=== PATIENT | male | born 1960 | race Caucasian/White ===

== ENCOUNTER 2021-09-19 01:11 | Inpatient (IN) | payer MEDICAID ==
[~2021-09-19] VITALS: Ht 170.2 cm; Wt 62.4 kg
[2021-09-19] MEDS ORDERED: VANCOMYCIN 1GM/250ML 250 ML IV ONE ×2 (04:30→10:00)
[2021-09-19 05:05] LABS: Basophils # (auto) 0.1 10 ^3/uL (0-0.2); Basophils % (auto) 1.8 % (0.0-2.0); Eosinophils # (auto) 0 10 ^3/uL (0-0.8); Eosinophils % (auto) 0.8 % (0.0-7.0); Hemoglobin 13.7 g/dL (13.5-17.5); Lymphocytes % (auto) 16.7 % (10.0-50.0); Mean Corpuscular Hemoglobin 30.3 pg (28.0-32.0); Mean Corpuscular Hgb Conc. 34.2 g/dL (32.0-36.0); Mean Corpuscular Volume 88.4 fL (80.0-100.0); Monocytes # (auto) 0.4 10 ^3/uL (0-1.3); Monocytes % (auto) 5.9 % (0.0-12.0); Neutrophils # (auto) 4.7 10 ^3/uL (1.6-8.6); Neutrophils % (auto) 74.8 % (37.0-80.0); Red Blood Cells 4.52 10^6/uL (4.5-5.90); Red Cell Distribution Width 14.4 % (11.8-14.3); White Blood Cell 6.2 10^3/uL (4.4-10.8)
[2021-09-19 05:38] LABS: BUN/Creatinine Ratio 16.4; Bilirubin, Total 0.7 mg/dL (0.2-1.0); CRP High Sensitivity 1.82 mg/dL (< 0.3); Calcium 8.3 mg/dL (8.5-10.1); Total Protein 7.6 g/dL (6.4-8.2)
[2021-09-19] MEDS ORDERED: ONDANSETRON HCL 4 MG/2 ML VIAL IV PRN (09:45)
[2021-09-19] MEDS ORDERED: VANCOMYCIN PER PHARMACY 0 MG IV SCH (09:45)
[2021-09-19] MEDS ORDERED: DOCUSATE SOD 100 MG CAP PO PRN (09:45)
[2021-09-19] MEDS ORDERED: HYDROcodone-ACET 5/325MG TAB PO PRN (09:45)
[2021-09-19] MEDS ORDERED: ACETAMINOPHEN 325 MG TAB PO PRN (09:45)
[2021-09-19] MEDS: ENOXAPARIN SOD 40 MG/0.4 ML SYRINGE SC SCH (10:00)
[2021-09-19] MEDS ORDERED: NITROGLYCERIN 0.4 MG SL TAB SL PRN (10:45)
[2021-09-19] MEDS ORDERED: MORPHINE SULFATE INJ 2 MG/ml SYRG IV PRN ×2 (10:45→17:00)
[2021-09-19] MEDS: SODIUM CHLOR 0.9% PF (SALINE LOCK) 10ML VIAL/SYR IV SCH ×2 (14:00→22:22)
[2021-09-19 22:00] VITALS: BP 124/72
[2021-09-20 00:12] VITALS: BP 124/60
[2021-09-20 05:00] VITALS: BP 114/71
[2021-09-20] MEDS ORDERED: VANCOMYCIN 1GM/250ML 250 ML IV ONE (05:15)
[2021-09-20] MEDS: SODIUM CHLOR 0.9% PF (SALINE LOCK) 10ML VIAL/SYR IV SCH ×3 (06:19→22:38)
[2021-09-20] MEDS: VANCOMYCIN 1GM/250ML 250 ML IV SCH ×2 (06:19→18:00)
[2021-09-20 08:00] VITALS: BP 128/73
[2021-09-20 08:02] LABS: Basophils # (auto) 0 10 ^3/uL (0-0.2); Basophils % (auto) 0.5 % (0.0-2.0); Eosinophils # (auto) 0.1 10 ^3/uL (0-0.8); Eosinophils % (auto) 1.7 % (0.0-7.0); Hematocrit 39.8 % (41.0-53.0); Hemoglobin 13.5 g/dL (13.5-17.5); Lymphocytes # (auto) 1.2 10 ^3/uL (0.4-5.4); Lymphocytes % (auto) 20.4 % (10.0-50.0); Mean Corpuscular Hemoglobin 29.9 pg (28.0-32.0); Mean Corpuscular Hgb Conc. 33.9 g/dL (32.0-36.0); Mean Corpuscular Volume 88.3 fL (80.0-100.0); Monocytes # (auto) 0.5 10 ^3/uL (0-1.3); Monocytes % (auto) 8.2 % (0.0-12.0); Neutrophils # (auto) 4.1 10 ^3/uL (1.6-8.6); Neutrophils % (auto) 69.2 % (37.0-80.0); Nucleated Red Blood Cells % 0.1 %; Red Blood Cells 4.51 10^6/uL (4.5-5.90)
[2021-09-20 08:43] LABS: Albumin 2.6 g/dL (3.4-5.0); Calcium 7.8 mg/dL (8.5-10.1); Potassium 3.6 mmol/L (3.5-5.1)
[2021-09-20 08:47] LABS: BUN/Creatinine Ratio 15.6; Total Protein 6.8 g/dL (6.4-8.2)
[2021-09-20] MEDS: ENOXAPARIN SOD 40 MG/0.4 ML SYRINGE SC SCH (10:00)
[2021-09-20 12:00] VITALS: BP 119/77
[2021-09-20 16:00] VITALS: BP 113/68
[2021-09-20 21:40] VITALS: BP 113/76
[2021-09-21 04:57] VITALS: BP 124/81
[2021-09-21] MEDS ORDERED: ACETAMINOPHEN 325 MG TAB PO PRN (06:00)
[2021-09-21] MEDS ORDERED: HYDROcodone-ACET 5/325MG TAB PO PRN (06:00)
[2021-09-21] MEDS ORDERED: ONDANSETRON HCL 4 MG/2 ML VIAL IV PRN (06:00)
[2021-09-21] MEDS ORDERED: VANCOMYCIN 1GM/250ML 250 ML IV SCH ×2 (06:00→11:00)
[2021-09-21] MEDS ORDERED: VANCOMYCIN 1GM/250ML 250 ML IV ONE (06:05)
[2021-09-21] MEDS ORDERED: VANCOMYCIN PER PHARMACY 0 MG IV SCH (06:15)
[2021-09-21] MEDS ORDERED: MORPHINE SULFATE INJ 2 MG/ml SYRG IV PRN ×2 (06:15)
[2021-09-21] MEDS ORDERED: NITROGLYCERIN 0.4 MG SL TAB SL PRN (06:15)
[2021-09-21] MEDS: SODIUM CHLOR 0.9% PF (SALINE LOCK) 10ML VIAL/SYR IV SCH ×2 (06:26→12:44)
[2021-09-21 07:40] VITALS: BP 124/84
[2021-09-21 09:00] VITALS: BP 124/84
[2021-09-21] MEDS ORDERED: ENOXAPARIN SOD 40 MG/0.4 ML SYRINGE SC SCH (10:00)
[2021-09-21] MEDS ORDERED: DOCUSATE SOD 100 MG CAP PO PRN (10:00)
[2021-09-21] MEDS ORDERED: CLIN300C8 PO (11:13)
[2021-09-21 12:39] VITALS: BP_SYST 124; BP_SYST 137; BP_DIAS 84; BP_DIAS 98
[2021-09-21 13:00] VITALS: BP 137/98
== END 2021-09-21 15:00 | disposition home or self-care (01) | DRG 383 ==
LOC: ER 01:11 → OVERFLOW 10:34 → EAST 22:25 → WEST WING 09-20 16:47 → UNDODISIN 09-20 16:47
PROVIDERS: ADMIT Nurse Practitioner Family; ATTEND Nurse Practitioner Family
DX: L03.115 Cellulitis of right lower limb (principal); E44.0 Moderate protein-calorie malnutrition; Z20.822 Contact with and (suspected) exposure to COVID-19; R70.0 Elevated erythrocyte sedimentation rate; Z68.21 Body mass index [BMI] 21.0-21.9, adult; F19.10 Other psychoactive substance abuse, uncomplicated; F10.10 Alcohol abuse, uncomplicated; F17.200 Nicotine dependence, unspecified, uncomplicated; F15.10 Other stimulant abuse, uncomplicated; F12.10 Cannabis abuse, uncomplicated; Z71.51 Drug abuse counseling and surveillance of drug abuser; Z71.6 Tobacco abuse counseling
CPT/HCPCS: 36415; 73700; 80053; 85025; 85652; 86141; 96365; 96372; G0378

== ENCOUNTER 2022-01-15 09:19 | Inpatient (IN) | payer MEDICAID, OTHER ==
[~2022-01-15] VITALS: Ht 182.9 cm; Wt 68.0 kg
[2022-01-15] MEDS: SODIUM CHLORIDE 0.9% 1,000 ML IV SCH ×2 (03:49→23:15)
[~2022-01-15 09:19] MED LIST: CLIN300C8 PO
[2022-01-15] MEDS ORDERED: cefTRIAXone 1GM/50ML D5W 50 ML IV ONE (11:15)
[2022-01-15] MEDS ORDERED: AZITHROMYCIN 500MG/ 250ML 250 ML IV ONE (11:15)
[2022-01-15] MEDS ORDERED: SODIUM CHLORIDE 0.9% 1,000 ML IV ONE ×2 (11:15)
[2022-01-15 12:32] LABS: Basophils # (auto) 0 10 ^3/uL (0-0.2); Basophils % (auto) 0.4 % (0.0-2.0); Eosinophils # (auto) 0.1 10 ^3/uL (0-0.8); Hematocrit 41.1 % (41.0-53.0); Monocytes # (auto) 0.5 10 ^3/uL (0-1.3); Nucleated Red Blood Cells % 0.1 %; Red Blood Cells 4.64 10^6/uL (4.5-5.90); White Blood Cell 6.6 10^3/uL (4.4-10.8)
[2022-01-15 12:33] LABS: Eosinophils % (auto) 1.1 % (0.0-7.0); Hemoglobin 13.8 g/dL (13.5-17.5); Lymphocytes % (auto) 14.5 % (10.0-50.0); Mean Corpuscular Hemoglobin 29.8 pg (28.0-32.0); Mean Corpuscular Hgb Conc. 33.6 g/dL (32.0-36.0); Mean Corpuscular Volume 88.5 fL (80.0-100.0); Monocytes % (auto) 7.7 % (0.0-12.0); Neutrophils % (auto) 76.3 % (37.0-80.0)
[2022-01-15 12:49] LABS: INR 0.98 (0.9-1.15); Partial Thromboplastin Time 29.1 sec (24.6-33.4)
[2022-01-15 12:53] LABS: Alanine Aminotransferase 25 U/L (16-61); Albumin 2.9 g/dL (3.4-5.0); Anion Gap 6 (5-15); Aspartate Aminotransferase 15 U/L (15-37); BUN/Creatinine Ratio 15.5; Blood Urea Nitrogen 16 mg/dL (7-18); Calcium 8.3 mg/dL (8.5-10.1); Carbon Dioxide 27 mmol/L (21-32); Chloride 104 mmol/L (98-107); GFR African American 94 mL/min; GFR Non-African American 78 mL/min; Glucose 94 mg/dL (74-106); Sodium 137 mmol/L (136-145)
[2022-01-15 12:55] LABS: Alkaline Phosphatase 64 U/L (45-117); Bilirubin, Total 0.6 mg/dL (0.2-1.0); Total Protein 7.3 g/dL (6.4-8.2)
[2022-01-15] MEDS ORDERED: ACETAMINOPHEN 325 MG TAB PO PRN (13:15)
[2022-01-15] MEDS ORDERED: ONDANSETRON HCL 4 MG/2 ML VIAL IV PRN (13:15)
[2022-01-15] MEDS ORDERED: HYDROcodone-ACET 5/325MG TAB PO PRN (13:15)
[2022-01-15] MEDS ORDERED: DOCUSATE SOD 100 MG CAP PO PRN (13:15)
[2022-01-15] MEDS ORDERED: PANTOPRAZOLE 40 MG/10 ML VIAL INJ IV ONE (13:15)
[2022-01-16 05:11] LABS: Basophils # (auto) 0 10 ^3/uL (0-0.2); Basophils % (auto) 0.5 % (0.0-2.0); Eosinophils # (auto) 0.1 10 ^3/uL (0-0.8); Eosinophils % (auto) 1.6 % (0.0-7.0); Hematocrit 43.4 % (41.0-53.0); Hemoglobin 14.7 g/dL (13.5-17.5); Lymphocytes # (auto) 0.9 10 ^3/uL (0.4-5.4); Lymphocytes % (auto) 13.8 % (10.0-50.0); Mean Corpuscular Hemoglobin 29.8 pg (28.0-32.0); Mean Corpuscular Hgb Conc. 33.8 g/dL (32.0-36.0); Mean Corpuscular Volume 88.2 fL (80.0-100.0); Monocytes # (auto) 0.6 10 ^3/uL (0-1.3); Monocytes % (auto) 9.4 % (0.0-12.0); Neutrophils # (auto) 5.1 10 ^3/uL (1.6-8.6); Neutrophils % (auto) 74.7 % (37.0-80.0); Red Blood Cells 4.92 10^6/uL (4.5-5.90); White Blood Cell 6.8 10^3/uL (4.4-10.8)
[2022-01-16] MEDS: cefTRIAXone 1GM/50ML D5W 50 ML IV SCH (08:52)
[2022-01-16] MEDS: SODIUM CHLORIDE 0.9% 1,000 ML IV SCH ×2 (09:16→11:18)
[2022-01-16] MEDS: AZITHROMYCIN 500MG/ 250ML 250 ML IV SCH (09:20)
[2022-01-16] MEDS: ENOXAPARIN SOD 40 MG/0.4 ML SYRINGE SC SCH (09:20)
[2022-01-16] MEDS: PANTOPRAZOLE 40 MG/10 ML VIAL INJ IV SCH (09:20)
[2022-01-16 10:38] VITALS: BP 124/76
[2022-01-16 13:00] VITALS: BP 124/76
[2022-01-16 17:00] VITALS: BP 116/68
[2022-01-16 22:00] VITALS: BP 123/80
[2022-01-17 05:00] VITALS: BP 103/62
[2022-01-17] MEDS: SODIUM CHLORIDE 0.9% 1,000 ML IV SCH ×2 (05:15→16:03)
[2022-01-17 08:00] VITALS: BP 119/78
[2022-01-17 09:00] VITALS: BP 119/78
[2022-01-17] MEDS: AZITHROMYCIN 500MG/ 250ML 250 ML IV SCH (10:13)
[2022-01-17] MEDS: ENOXAPARIN SOD 40 MG/0.4 ML SYRINGE SC SCH (10:13)
[2022-01-17] MEDS: PANTOPRAZOLE 40 MG/10 ML VIAL INJ IV SCH (10:13)
[2022-01-17] MEDS: cefTRIAXone 1GM/50ML D5W 50 ML IV SCH (10:13)
[2022-01-17 13:00] VITALS: BP 114/78
[2022-01-17 17:00] VITALS: BP 109/77
[2022-01-17 20:52] LABS: Urine Bacteria NONE SEEN /hpf (None Seen); Urine Blood Negative /uL (Negative); Urine Specific Gravity 1.017 (1.001-1.035); Urine WBC 2 /hpf (0 - 3)
[2022-01-18] MEDS: SODIUM CHLORIDE 0.9% 1,000 ML IV SCH ×3 (01:15→22:39)
[2022-01-18 05:00] VITALS: BP 118/79
[2022-01-18 08:00] VITALS: BP 120/80
[2022-01-18 08:55] VITALS: BP 120/80
[2022-01-18] MEDS: ENOXAPARIN SOD 40 MG/0.4 ML SYRINGE SC SCH (09:28)
[2022-01-18] MEDS: cefTRIAXone 1GM/50ML D5W 50 ML IV SCH (09:28)
[2022-01-18] MEDS: PANTOPRAZOLE 40 MG/10 ML VIAL INJ IV SCH (09:28)
[2022-01-18] MEDS: AZITHROMYCIN 500MG/ 250ML 250 ML IV SCH (10:55)
[2022-01-18 13:00] VITALS: BP 113/75
[2022-01-18 16:50] VITALS: BP 114/74
[2022-01-18 22:00] VITALS: BP 112/67
[2022-01-19 05:00] VITALS: BP 117/75
[2022-01-19 08:00] VITALS: BP 118/73
[2022-01-19 08:30] VITALS: BP 118/73
[2022-01-19] MEDS: PANTOPRAZOLE 40 MG/10 ML VIAL INJ IV SCH (09:46)
[2022-01-19] MEDS: AZITHROMYCIN 500MG/ 250ML 250 ML IV SCH (09:46)
[2022-01-19] MEDS: ENOXAPARIN SOD 40 MG/0.4 ML SYRINGE SC SCH (09:46)
[2022-01-19] MEDS: cefTRIAXone 1GM/50ML D5W 50 ML IV SCH (09:46)
[2022-01-19] MEDS: SODIUM CHLORIDE 0.9% 1,000 ML IV SCH ×2 (11:38→17:37)
[2022-01-19 12:30] VITALS: BP 119/76
[2022-01-19] MEDS ORDERED: VANCOMYCIN PER PHARMACY 0 MG IV SCH (14:00)
[2022-01-19] MEDS: VANCOMYCIN 1GM/250ML 250 ML IV SCH (15:52)
[2022-01-19 16:30] VITALS: BP 116/74
[2022-01-19 22:00] VITALS: BP 105/67
[2022-01-20] MEDS: SODIUM CHLORIDE 0.9% 1,000 ML IV SCH ×2 (03:27→13:38)
[2022-01-20] MEDS: VANCOMYCIN 1GM/250ML 250 ML IV SCH ×2 (03:29→14:43)
[2022-01-20 05:13] VITALS: BP 113/72
[2022-01-20 07:47] LABS: BUN/Creatinine Ratio 19.6; Calcium 8.5 mg/dL (8.5-10.1); Potassium 4.4 mmol/L (3.5-5.1)
[2022-01-20 09:00] VITALS: BP 131/76
[2022-01-20] MEDS: PANTOPRAZOLE 40 MG/10 ML VIAL INJ IV SCH (10:00)
[2022-01-20] MEDS: ENOXAPARIN SOD 40 MG/0.4 ML SYRINGE SC SCH (10:31)
[2022-01-20] MEDS: cefTRIAXone 1GM/50ML D5W 50 ML IV SCH (10:31)
[2022-01-20] MEDS: AZITHROMYCIN 500MG/ 250ML 250 ML IV SCH (11:40)
[2022-01-20 13:00] VITALS: BP 109/73
[2022-01-20] MEDS ORDERED: CLIN300C8 PO (15:39)
[2022-01-20 16:59] VITALS: BP 131/74
[2022-01-20 17:00] VITALS: BP 127/72
== END 2022-01-20 19:04 | disposition home or self-care (01) | DRG 383 ==
LOC: ER 09:19 → OVERFLOW 13:09 → WEST WING 01-16 10:38
PROVIDERS: ADMIT Nurse Practitioner Family; ATTEND Nurse Practitioner Acute Care
PROC: 0Y9N0ZZ Drainage of Left Foot, Open Approach (ICD-10-PCS; principal; 2022-01-17)
DX: L03.116 Cellulitis of left lower limb (principal); E44.0 Moderate protein-calorie malnutrition; E83.51 Hypocalcemia; L02.612 Cutaneous abscess of left foot; Z20.822 Contact with and (suspected) exposure to COVID-19; F17.210 Nicotine dependence, cigarettes, uncomplicated; A49.02 Methicillin resistant Staphylococcus aureus infection, unspecified site; F19.10 Other psychoactive substance abuse, uncomplicated; F15.10 Other stimulant abuse, uncomplicated; F12.10 Cannabis abuse, uncomplicated; Z71.51 Drug abuse counseling and surveillance of drug abuser; Z71.6 Tobacco abuse counseling; Z80.8 Family history of malignant neoplasm of other organs or systems; Z68.24 Body mass index [BMI] 24.0-24.9, adult; Z91.81 History of falling
CPT/HCPCS: 36415; 71045; 73630; 73700; 73718; 80048; 80053; 81001; 83605; 84484; 85025; 85610; 85730; 87040; 87077; 87186; 87205; 87426; 96361; 96365; 96367; 96375; C9113; G0378; J0696

== ENCOUNTER 2023-09-13 11:22 | Inpatient (IN) | payer MEDICARE, OTHER ==
[~2023-09-13] VITALS: Ht 177.8 cm; Wt 67.1 kg
[~2023-09-13 11:22] MED LIST changes: +CLIN1CAP70 PO; -CLIN300C8 PO
[2023-09-13] MEDS: SODIUM CHLORIDE 0.9% 1,000 ML IV ONE ×2 (14:21→17:24)
[2023-09-13 14:33] LABS: Basophils # (auto) 0 10 ^3/uL (0-0.2); Basophils % (auto) 0.2 % (0.0-2.0); Eosinophils # (auto) 0 10 ^3/uL (0-0.8); Eosinophils % (auto) 0.1 % (0.0-7.0); Hematocrit 40.1 % (41.0-53.0); Hemoglobin 13.8 g/dL (13.5-17.5); Lymphocytes # (auto) 0.8 10 ^3/uL (0.4-5.4); Lymphocytes % (auto) 10.1 % (10.0-50.0); Mean Corpuscular Hemoglobin 29.5 pg (28.0-32.0); Mean Corpuscular Hgb Conc. 34.4 g/dL (32.0-36.0); Mean Corpuscular Volume 85.7 fL (80.0-100.0); Monocytes # (auto) 0.7 10 ^3/uL (0-1.3); Monocytes % (auto) 9.6 % (0.0-12.0); Neutrophils # (auto) 6.1 10 ^3/uL (1.6-8.6); Nucleated Red Blood Cells % 0.1 %; Red Blood Cells 4.68 10^6/uL (4.5-5.90); Red Cell Distribution Width 14.1 % (11.8-14.3); White Blood Cell 7.7 10^3/uL (4.4-10.8)
[2023-09-13 14:55] LABS: Alanine Aminotransferase 55 U/L (7-40); Albumin 3.4 g/dL (3.2-4.8); Alkaline Phosphatase 107 U/L (46-116); Anion Gap 4 (5-15); Aspartate Aminotransferase 47 U/L (13-40); BUN/Creatinine Ratio 10.1 (10.0-20.0); Bilirubin, Total 0.7 mg/dL (0.2-1.0); Blood Alcohol < 3.0 mg/dL (<10); Blood Urea Nitrogen 9 mg/dL (9-23); Calcium 8.3 mg/dL (8.5-10.1); Carbon Dioxide 30 mmol/L (20-30); Chloride 96 mmol/L (98-107); Glucose 105 mg/dL (74-106); Potassium 3.5 mmol/L (3.5-5.1); Sodium 130 mmol/L (136-145); Total Protein 6.1 g/dL (5.7-8.2)
[2023-09-13] MEDS: traMADol HCL 50 MG TAB PO ONE (17:09)
[2023-09-13] MEDS ORDERED: NITROGLYCERIN 0.4 MG SL TAB SL PRN (19:45)
[2023-09-13] MEDS ORDERED: ONDANSETRON HCL 4 MG/2 ML VIAL IV PRN (19:45)
[2023-09-13] MEDS ORDERED: DOCUSATE SOD 100 MG CAP PO PRN (19:45)
[2023-09-13] MEDS ORDERED: MORPHINE SULFATE INJ 2 MG/ml SYRG IV PRN ×2 (19:45)
[2023-09-14] VITALS (11 sets, daily range): BP systolic 96–129; BP diastolic 44–72; PULSE 64–82; RESP 16–20; TEMP 97.7–99.3; O2SAT 92–98
[2023-09-14] MEDS: SODIUM CHLORIDE 0.9% 1,000 ML IV SCH (00:15)
[2023-09-14 06:35] LABS: Basophils # (auto) 0 10 ^3/uL (0-0.2); Basophils % (auto) 0.1 % (0.0-2.0); Eosinophils # (auto) 0 10 ^3/uL (0-0.8); Hematocrit 36.3 % (41.0-53.0); Hemoglobin 12.5 g/dL (13.5-17.5); Lymphocytes # (auto) 0.7 10 ^3/uL (0.4-5.4); Lymphocytes % (auto) 10.3 % (10.0-50.0); Mean Corpuscular Hemoglobin 29.5 pg (28.0-32.0); Mean Corpuscular Hgb Conc. 34.4 g/dL (32.0-36.0); Mean Corpuscular Volume 85.9 fL (80.0-100.0); Monocytes # (auto) 0.7 10 ^3/uL (0-1.3); Monocytes % (auto) 10.3 % (0.0-12.0); Neutrophils # (auto) 5.5 10 ^3/uL (1.6-8.6); Neutrophils % (auto) 79.3 % (37.0-80.0); Red Blood Cells 4.23 10^6/uL (4.5-5.90); Red Cell Distribution Width 14.7 % (11.8-14.3); White Blood Cell 6.9 10^3/uL (4.4-10.8)
[2023-09-14 06:42] LABS: Alanine Aminotransferase 45 U/L (7-40); Albumin 2.8 g/dL (3.2-4.8); Alkaline Phosphatase 91 U/L (46-116); Anion Gap 4 (5-15); Aspartate Aminotransferase 39 U/L (13-40); BUN/Creatinine Ratio 13.7 (10.0-20.0); Bilirubin, Total 0.4 mg/dL (0.2-1.0); Blood Urea Nitrogen 10 mg/dL (9-23); Calcium 7.5 mg/dL (8.5-10.1); Carbon Dioxide 26 mmol/L (20-30); Chloride 101 mmol/L (98-107); Glucose 113 mg/dL (74-106); Potassium 3.6 mmol/L (3.5-5.1); Sodium 131 mmol/L (136-145); Total Protein 5.2 g/dL (5.7-8.2)
[2023-09-14] MEDS: HYDROcodone-ACET 5/325MG TAB PO PRN (09:28)
[2023-09-14] MEDS: PANTOPRAZOLE 40 MG TAB PO SCH (09:28)
[2023-09-14] MEDS: Ensure HIGH Protein Vanilla 8oz Bottle PO SCH (09:28)
[2023-09-14] MEDS: FOLIC ACID 1 MG TAB PO SCH (09:29)
[2023-09-14] MEDS: ENOXAPARIN SOD 40 MG/0.4 ML SYRINGE SC SCH (09:29)
[2023-09-14] MEDS: POTASSIUM CHL 20 Meq TABLET PO ONE (17:13)
[2023-09-14] MEDS ORDERED: LORazepam 0.5 MG TAB PO PRN (17:30)
[2023-09-14] MEDS: FOLIC ACID 1 MG, MAGNESIUM SULF SDV 50% 8 MEQ, MULTIPLE VITAMIN 10 ML, THIAMINE INJ 100... INJ SCH (19:07)
[2023-09-14] MEDS: GABAPENTIN 300 MG CAP PO SCH (21:38)
[2023-09-14] MEDS: MUPIROCIN 2% OINT 15gm or 22gm FOR MRSA NARES EACHNOSTRI SCH (21:40)
[2023-09-15] VITALS (7 sets, daily range): BP systolic 117–136; BP diastolic 54–80; PULSE 70–76; RESP 18–22; TEMP 98.1–101; O2SAT 90–94
[2023-09-15 00:05] LABS: Amphetamine Screen, Urine Neg (NEGATIVE); Barbiturate Scree,Urine Neg (NEGATIVE); Benzodiazephine Screen, Urine Neg (NEGATIVE); Cannabinoid Screen, Urine Neg (NEGATIVE); Cocaine Screen, Urine Neg (NEGATIVE); Opiate Scree,Urine Neg (NEGATIVE); Phencyclidine Screen, Urine Neg (NEGATIVE)
[2023-09-15] MEDS: METOPROLOL TARTRATE 25 MG TAB PO SCH (21:42)
[2023-09-16] VITALS (8 sets, daily range): BP systolic 114–140; BP diastolic 64–86; PULSE 66–87; RESP 17–20; TEMP 98.2–100.8; O2SAT 90–93
[2023-09-16] MEDS ORDERED: IOHEXOL 350 MG/ML 100ML IJ ONE (08:41)
[2023-09-16] MEDS: ENOXAPARIN SOD 100 MG/1 ML SYRINGE SC SCH (10:00)
[2023-09-16] MEDS ORDERED: GABA-1250 PO (13:15)
[2023-09-16] MEDS ORDERED: MET25T PO (13:15)
[2023-09-16] MEDS: ACETAMINOPHEN 325 MG TAB PO PRN (20:45)
[2023-09-17 01:00] VITALS: BP 116/72; PULSE 63; RESP 16; TEMP 97.6; O2SAT 93
[2023-09-17 05:00] VITALS: BP 116/64; PULSE 61; RESP 15; TEMP 98.9; O2SAT 93
[2023-09-17 08:00] VITALS: PULSE 72; PULSE 84; RESP 20; O2SAT 92
[2023-09-17 08:16] VITALS: BP 144/85; PULSE 72; RESP 20; TEMP 98.9; O2SAT 92
[2023-09-17 12:59] VITALS: BP 132/71; PULSE 70; RESP 12; TEMP 98.5; O2SAT 90
[2023-09-17] MEDS ORDERED: DOXY-448 PO (13:32)
== END 2023-09-17 16:00 | disposition home or self-care (01) | DRG 641 ==
LOC: EDBD 11:22 → ER 11:22 → TELE 19:38 → TELE-EAST 09-14 03:13 → TELE-CENTR 09-14 20:00
PROVIDERS: ADMIT Nurse Practitioner; ATTEND Nurse Practitioner
PROC: 5A0935A Assistance with Respiratory Ventilation, Less than 24 Consecutive Hours, High Flow/Velocity Cannula (ICD-10-PCS; principal; 2023-09-14)
DX: E87.1 Hypo-osmolality and hyponatremia (principal); F15.10 Other stimulant abuse, uncomplicated; R51.9 Headache, unspecified; F10.10 Alcohol abuse, uncomplicated; Y90.9 Presence of alcohol in blood, level not specified; I27.20 Pulmonary hypertension, unspecified; Z80.8 Family history of malignant neoplasm of other organs or systems
CPT/HCPCS: 36415; 70450; 71045; 71275; 76700; 80053; 80307; 80320; 83735; 84443; 85025; 85379; 87081; 93005; 93306; G0378